=== PATIENT | female | born 2000 | race Caucasian/White ===

== ENCOUNTER → 2018-07-25 | Outpatient (CLI) | payer OTHER ==
--- NOTE | 2018-07-25 16:16 | RADIOLOGY IMAGING REPORT ---
FACILITY: [facility] - [place], [place] PATIENT NAME: Julia Escamilla : 2000 MR: [id number] V: [id number] EXAM DATE: ORDERING PHYSICIAN: RADHA FOREMAN TECHNOLOGIST: Location: Patient: Julia Escamilla : 2000 Visit/Account:[id number] Date of Sevice: 07/25/2018 PELVIC HISTORY: Left-sided pelvic pain TECHNIQUE: Transabdominal and transvaginal ultrasound pelvis. COMPARISON: None. FINDINGS: Uterus: ; 8.2 cm length x 3.6 cm AP x 4.5 cm transverse. Myometrium: Unremarkable. Endometrium: Unremarkable; double thickness 9 mm. Cervix: Grossly negative. Ovaries: Right - 3.1 x 2.8 x 1.7 cm. There are multiple small peripheral follicles seen in the right ova ry. Left - 3.8 x 3 x 2.4 cm. There are multiple small peripheral follicles seen in the left ovary.. Also the left ovary is a slightly heterogeneous echogenic space-occupying process adjacent 2.4 x 2 x 1.7 cm with the internal vascularity Blood flow is documented in each ovary by duplex Doppler ultrasound. Adnexa: Grossly unremarkable. Free pelvic fluid: Mild. IMPRESSION: There are multiple small peripheral follicles seen in both ovaries which can sometimes be seen with p olycystic ovary syndrome. Clinical correlation needed Solid echogenic space-occupying process left ovary measuring 2.4 x 2 x 1.7 cm with internal vasculari ty. This may represent a solid mass short-term follow-up pelvic ultrasound in 2-3 months recommended unless clinical findings were immediate attention Small amount of free pelvic fluid Report Dictated By: Christiana Carranza MD at 07/25/2018 4:07 PM Report E-Signed By: Christiana Carranza MD at 07/25/2018 4:11 PM HYACINTHN:FERCHO
== END ==
LOC: US 12:48
PROVIDERS: ATTEND Pediatrics Adolescent Medicine
DX: N94.89 Other specified conditions associated with female genital organs and menstrual cycle (principal)
CPT/HCPCS: 76856

== ENCOUNTER → 2018-10-12 | Outpatient (CLI) | payer OTHER ==
--- NOTE | 2018-10-12 16:28 | RADIOLOGY IMAGING REPORT ---
FACILITY: [facility] PATIENT NAME: Julia Escamilla : 2000 MR: [id number] V: [id number] EXAM DATE: ORDERING PHYSICIAN: KRISTYN RODRIGUEZ TECHNOLOGIST: Location: [facility] Patient: Julia Escamilla : 2000 Visit/Account:[id number] Date of Sevice: 10/12/2018 [facility] TRANSVAGINAL NON-OB HISTORY: NONINFLAMMATORY DISORD OF OVARY, FALLOP BROAD LIGMT, UNSP TECHNIQUE: Transvaginal ultrasound pelvis. COMPARISON: July 25, 2018 FINDINGS: Uterus: ; 7.36 cm length x 3.4 cm AP x 4.1 cm transverse. Myometrium: Unremarkable. Endometrium: Unremarkable; double thickness 5.3 mm. Cervix: Grossly negative. Ovaries: Right - 3.6 x 3.7 x 2.8 cm. There is a 3.5 x 2 x 2.9 cm simple cyst Left - 2.95 x 2.8 x 1.6 cm. The previously noted solid mass left ovary is no longer demonstrate d Blood flow is documented in each ovary by duplex Doppler ultrasound. Adnexa: Grossly unremarkable. Free pelvic fluid: Trace. IMPRESSION: Previously noted solid left ovarian mass is no longer seen There is a 3.5 x 2 x 2.9 cm simple cyst in the right ovary Report Dictated By: Christiana Carranza MD at 10/12/2018 4:20 PM Report E-Signed By: Christiana Carranza MD at 10/12/2018 4:24 PM WSN:[id number]
== END ==
LOC: RAD 09:52
PROVIDERS: ATTEND Obstetrics & Gynecology
DX: N83.291 Other ovarian cyst, right side (principal); N83.9 Noninflammatory disorder of ovary, fallopian tube and broad ligament, unspecified